=== PATIENT | male | born 1965 | race Caucasian/White ===

== ENCOUNTER → 2018-11-04 | Outpatient (CLI) | payer BC, OTHER ==
--- NOTE | 2018-11-04 10:21 | RADIOLOGY IMAGING REPORT ---
FACILITY: [facility] [place] PATIENT NAME: Angelo Chapin : 1965 MR: [id number] V: [id number] EXAM DATE: ORDERING PHYSICIAN: ERMA ADAM TECHNOLOGIST: Location: [facility] Patient: Angelo Chapin : 1965 Visit/Account:[id number] Date of Sevice: 11/04/2018 Testicular ultrasound. HISTORY: Epididymal cyst. COMPARISON: None. Right testicular length: 4.3 cm. Right intratesticular blood flow: Normal. Right hydrocele: No. Right varicocele: Minimal. Right microlithiasis: No. Right epididymal head thickness: 3.3 cm. No right intratesticular masses. Left testicular length: 4.2 cm. Left testicular blood flow: Normal. Left hydrocele: No. Left varicocele: Minimal. Left microlithiasis: No. Left epididymal head thickness: 1.5 cm. No left intratesticular masses. Multiple simple cysts measuring up to 2.8 cm in diameter are present in the right epididymal head. M ultiple small simple cysts measuring up to 4 mm in diameter are present in the left epididymal head. IMPRESSION: Bilateral epididymal head cysts. Minimal bilateral varicoceles. Report Dictated By: Akil Estes MD at 11/04/2018 10:12 AM Report E-Signed By: Akil Estes MD at 11/04/2018 10:17 AM WSN:[email or web address]
== END ==
LOC: US 02:26
PROVIDERS: ATTEND Urology
DX: N50.3 Cyst of epididymis (principal); I86.1 Scrotal varices
CPT/HCPCS: 76870